=== PATIENT | male | born 1930 | race Caucasian/White ===

== ENCOUNTER 2020-01-29 07:29 | Day surgery (SDC) | payer MEDICARE, OTHER ==
[2020-01-22 11:17] LABS: BASOPHILS % (AUTO) 0.2 % (0-1); EOSINOPHILS # (AUTO) 0.3 X10'3 (0-0.9); EOSINOPHILS % (AUTO) 2.5 % (0-6); LYMPHOCYTES # (AUTO) 1.1 X10'3 (1.1-4.8); LYMPHOCYTES % (AUTO) 10.6 % (21-51); MEAN CORPUSCULAR HEMOGLOBIN 30.3 PG (27.0-31.0); MEAN CORPUSCULAR VOLUME 91.8 FL (78-98); MEAN PLATELET VOLUME 10.2 FL (7.4-10.4); MONOCYTES # (AUTO) 1.1 X10'3 (0-0.9); MONOCYTES % (AUTO) 10.2 % (2-12); NEUTROPHILS % (AUTO) 76.5 % (42-75); PRE OP HEMATOCRIT 45.8 % (42.0-52.0); PRE OP HEMOGLOBIN 15.1 g/dL (14.0-17.9); PRE OP PLATELET COUNT 193 X10'3 (140-440); RED BLOOD COUNT 4.99 X10'6 (4.70-6.10); RED CELL DISTRIBUTION WIDTH 14.6 % (11.5-14.5)
[2020-01-22 11:30] LABS: CLARITY,URINE CLEAR (Clear); COLOR,URINE YELLOW (Yellow); GLUCOSE, URINE NEGATIVE (Neg); KETONES,URINE NEGATIVE (Neg); LEUKOCYTE ESTERASE ,URINE NEGATIVE (Neg); NITRITES, URINE NEGATIVE (Neg); OCCULT BLOOD,URINE NEGATIVE (Neg); PROTEIN,URINE NEGATIVE (Neg); UROBILINOGEN,URINE 0.2 E.U/dL (0.2-1.0)
[2020-01-22 11:32] LABS: UA COLLECTION TYPE VOIDED
[2020-01-22 11:32] LABS: ALBUMIN 3.4 G/DL (3.4-5.0); ALBUMIN/GLOBULIN RATIO 0.9 (1.1-1.5); ALKALINE PHOSPHATASE 132 IU/L (46-116); BLOOD UREA NITROGEN 17 MG/DL (7-18); BUN/CREATININE RATIO 11.6 (5.4-32.0); CALCIUM 9.4 MG/DL (8.5-10.1); CHLORIDE 105 MMOL/L (99-107); CREATININE 1.46 MG/DL (0.60-1.10); PRE OP ALT 24 U/L (30-65); PRE OP ANION GAP 6 (8-16); PRE OP AST 18 U/L (10-37); PRE OP BILIRUB, TOTAL 0.4 MG/DL (0.0-1.0); PRE OP GLUCOSE 105 MG/DL (70-104); PRE OP POTASSIUM 4.4 MMOL/L (3.4-5.1); PRE OP SODIUM 140 MMOL/L (135-145); TOTAL PROTEIN 7.1 G/DL (6.4-8.2); eGFR 46 ML/MIN
[~2020-01-29] VITALS: Ht 167.6 cm; Wt 72.0 kg
[2020-01-29] VITALS (11 sets, daily range): BP systolic 112–156; BP diastolic 78–97
[~2020-01-29 07:29] MED LIST: AMLO2.5T2 PO; ASPI-611 PO; ATOR40TA72 PO; DOCUMENT DATE & TIME OF BETA-BLOCKER PO ONE; METO25TA6 PO; cefazolin/dext.iso 2gm/50ml 50 ML IV ONE; famotidine 20mg tablet PO ONE; ringers solution, lacted 1,000 ML IV SCH
[2020-01-29] MEDS ORDERED: LIDOcaine 1% (10mg/ml) 2ml vial ONE (08:18)
[2020-01-29] MEDS ORDERED: BUPIVAcaine/PF 2.5 mg/ml (0.25%) 30ml vial ONE (08:44)
[2020-01-29] MEDS ORDERED: sevoflurane 250ml liquid IH ONE (09:25)
[2020-01-29] MEDS ORDERED: dexamethasone sod phosphate 10mg/ml inj ONE (09:25)
[2020-01-29] MEDS ORDERED: acetaminophen 1000 MG/100ml vial IV ONE (09:25)
[2020-01-29] MEDS ORDERED: ondansetron/PF 4mg/2ml inj ONE (09:25)
[2020-01-29] MEDS ORDERED: fentaNYL/PF 50MCG/1 ML 2ML syringe ONE (09:31)
[2020-01-29] MEDS ORDERED: midazolam 2 mg/2 ml injection ONE (09:32)
[2020-01-29] MEDS ORDERED: propofol inj 20 ML IV ONE (09:46)
[2020-01-29] MEDS ORDERED: ePHEDrine 50MG/ML INJ. ONE (09:46)
[2020-01-29] MEDS ORDERED: LIDOcaine 2% (20mg/ml) 5ml vial ONE (09:46)
[2020-01-29] MEDS ORDERED: ondansetron/PF 4mg/2ml inj IV PRN (10:05)
[2020-01-29] MEDS ORDERED: morphine 2 MG/ML inj. syringe IV PRN (10:05)
[2020-01-29] MEDS ORDERED: proCHLORperazine 10 MG/2 ml inj IV PRN (10:05)
[2020-01-29] MEDS ORDERED: ringers solution, lacted 1,000 ML IV SCH (10:05)
[2020-01-29] MEDS ORDERED: morphine 4 MG/ML inj SYRINge IV PRN (10:05)
[2020-01-29] MEDS ORDERED: meperidine/PF 25mg/ml syringe IV PRN ×3 (10:05)
--- NOTE | 2020-01-29 11:43 | NUR ---
Received from OR via [facility], accompanied by Anesthesiologist DR TARIQ and report given by Anesthesiologist. PT DROWSY, DENIES PAIN, UPPER MID BACK W/IS[place], MIKHAIL TO BULB SUCTION W/SANGUINOUS SMALL AMT OF DRAINAGE. Addendum: 01/29/20 at 1209 by Daysi Herrera RN Amended: Links added.
--- NOTE | 2020-01-29 13:33 | NUR ---
D/C INSTRUCTIONS GIVEN AND GONE OVER W/PT WHO VERBALIZED UNDERSTANDING, TEACHING DONE W/PT ON MIKHAIL DRAIN ON HOW TO EMPTY AND HOW TO CHARGE THE BULB TO SUCTION, PT DEMONSTRATES UNDERSTANDING. PT D/CD TO HOME VIA W/C TO PRIVATE VEHICLE W/O INCIDENT. Addendum: 01/29/20 at 1355 by Daysi Herrera RN Amended: Links added.
== END 2020-01-29 13:33 | disposition home or self-care (01) ==
LOC: PAS 07:29
PROVIDERS: ATTEND Surgery
DX: D17.1 Benign lipomatous neoplasm of skin and subcutaneous tissue of trunk (principal); J44.9 Chronic obstructive pulmonary disease, unspecified; I25.10 Atherosclerotic heart disease of native coronary artery without angina pectoris; I10 Essential (primary) hypertension; I25.2 Old myocardial infarction; Z95.5 Presence of coronary angioplasty implant and graft; Z98.890 Other specified postprocedural states; Z79.899 Other long term (current) drug therapy; Z79.82 Long term (current) use of aspirin; Z20.828 Contact with and (suspected) exposure to other viral communicable diseases
CPT/HCPCS: 21933; 36415; 80053; 81003; 82948; 85025; 87635; A6402; J0131; J1100; J2001; J2250; J2405; J2704; J3010; J3490; J7120; A4618; A7000

== ENCOUNTER 2020-01-29 22:21 | Emergency (ER) | payer MEDICARE, OTHER ==
[~2020-01-29] VITALS: Ht 167.6 cm; Wt 72.1 kg
[~2020-01-29 22:21] MED LIST changes: -DOCUMENT DATE & TIME OF BETA-BLOCKER PO ONE; -cefazolin/dext.iso 2gm/50ml 50 ML IV ONE; -famotidine 20mg tablet PO ONE; -ringers solution, lacted 1,000 ML IV SCH
[2020-01-29 22:24] VITALS: BP 153/108
== END 2020-01-29 23:44 | disposition home or self-care (01) ==
LOC: ER 22:22
DX: T81.89XA Other complications of procedures, not elsewhere classified, initial encounter (principal); E78.00 Pure hypercholesterolemia, unspecified; I10 Essential (primary) hypertension; Z79.82 Long term (current) use of aspirin; Z79.899 Other long term (current) drug therapy; X58.XXXA Exposure to other specified factors, initial encounter; Y93.89 Activity, other specified; Y92.89 Other specified places as the place of occurrence of the external cause; Y99.8 Other external cause status
CPT/HCPCS: 88304; 99281; 99282

== ENCOUNTER 2020-07-26 12:42 | Emergency (ER) | payer MEDICARE, OTHER ==
[~2020-07-26] VITALS: Ht 167.6 cm; Wt 68.2 kg
[~2020-07-26 12:42] MED LIST changes: +LOP25T PO; -METO25TA6 PO
[2020-07-26 12:56] VITALS: BP 161/90
[2020-07-26] MEDS ORDERED: bacitracin 15gm ointment TP ONE (13:50)
--- NOTE | 2020-07-26 14:14 | NUR ---
SKIN TEAR ON TOP OF HAND WITH DRESSING DRY AND INTACT. DC INSTRUCTIONS GIVEN WITH SUPPLIES.
== END 2020-07-26 14:16 | disposition home or self-care (01) ==
LOC: ER 12:43
DX: S61.412A Laceration without foreign body of left hand, initial encounter (principal); E78.00 Pure hypercholesterolemia, unspecified; I10 Essential (primary) hypertension; Z79.82 Long term (current) use of aspirin; Z79.899 Other long term (current) drug therapy; W18.39XA Other fall on same level, initial encounter; Y93.89 Activity, other specified; Y92.89 Other specified places as the place of occurrence of the external cause; Y99.8 Other external cause status
CPT/HCPCS: 99284